=== PATIENT | male | born 1955 | race African-American/Black ===

== ENCOUNTER 2021-02-25 15:08 | Emergency (ER) | payer OTHER ==
[~2021-02-25] VITALS: Ht 157.5 cm; Wt 81.6 kg
[2021-02-25 16:36] LABS: PLATELET COUNT 238 K/uL (142-355)
[2021-02-25 16:46] LABS: POTASSIUM 4.1 mmol/L (3.6-5.2)
[2021-02-25 16:58] LABS: PARTIAL THROMBOPLASTIN TIME 23.8 SECONDS (24.5-33.6)
[2021-02-25 19:24] VITALS: BP 110/74; TEMP 98.5
== END 2021-02-25 19:24 | disposition home or self-care (01) ==
LOC: ED 15:08
PROVIDERS: Family Medicine
DX: R42 Dizziness and giddiness (principal); M47.812 Spondylosis without myelopathy or radiculopathy, cervical region; J32.0 Chronic maxillary sinusitis
CPT/HCPCS: 80053; 85027; 85610; 85730; 93005; 99283